=== PATIENT | female | born 1965 ===

== ENCOUNTER 2018-11-26 05:15 | Day surgery (SDC) | payer OTHER ==
[~2018-11-26] VITALS: Ht 162.6 cm; Wt 88.9 kg
[2018-11-26] VITALS (11 sets, daily range): BP systolic 150–178; BP diastolic 75–91
[2018-11-26] MEDS ORDERED: LISINOPRIL40 MG ORAL (05:50)
[2018-11-26] MEDS ORDERED: LEVOXYL150 MCG ORAL (05:50)
[2018-11-26] MEDS ORDERED: NAPROXEN250 MG ORAL (05:50)
[2018-11-26] MEDS ORDERED: METFORMIN HCL500 M1 ORAL (05:50)
[2018-11-26] MEDS ORDERED: TRAMADOL HCL50 MG ORAL (05:50)
[2018-11-26] MEDS ORDERED: Acetaminophen (Non formulary) 100 ML IV ONE ×2 (06:00→07:00)
[2018-11-26] MEDS ORDERED: celeBREX 200mg Cap **SURGERY PATIENTS ONLY ORAL ONE (06:00)
[2018-11-26] MEDS ORDERED: ceFAZolin 1gm IVPB IVPB ONE ×2 (06:00)
[2018-11-26] MEDS ORDERED: oxyCONTIN 20mg tab ORAL ONE (06:00)
[2018-11-26] MEDS ORDERED: Alfentanil 2ml Inj ONE (06:35)
[2018-11-26] MEDS ORDERED: Midazolam 2mg/2ml Inj ONE (06:35)
[2018-11-26] MEDS ORDERED: LR 1000ml 1,000 ML IVLG SCH (06:37)
--- NOTE | 2018-11-26 06:41 | Anethesia Preoperative Eval ---
Anesthesia Pre-op PMH/ROS General Date of Evaluation: Nov 26, 2018 Time of Evaluation: 06:51 Anesthesiologist: Elio ASA Score: ASA 3 Mallampati Score Class I : Soft palate, uvula, fauces, pillars visible Class II: Soft palate, uvula, fauces visible Class III: Soft palate, base of uvula visible Class IV: Only hard plate visible Mallampati Classification: Class II Surgeon: Rula Diagnosis: L Hand Tenosynovitis Surgical Procedure: L Hand CTR, De Quervain Release Anesthesia History: none Family History: no anesthesia problems Allergies: Coded Allergies: No Known Allergies (Unverified , 11/25/18) Medications: see eMAR Patient NPO?: Yes Past Medical History Cardiovascular: Reports: HTN Endocrine: Reports: DM Other: obesity - BMI 35 PSxH Narrative: Cholecystectomy Anesthesia Pre-op Phys. Exam Physician Exam Last Vital Signs Date Time Temp Pulse Resp B/P (MAP) Pulse Ox O2 Delivery O2 Flow Rate FiO2 11/26/18 05:58 Room Air 11/26/18 05:51 97.7 53 18 158/75 97 Constitutional: NAD Neurologic: CN 2-12 intact Cardiovascular: RRR Respiratory: CTA Gastrointestinal: S/NT/ND Airway Exam Mallampati Score: Class II MO: limited ROM: limited Teeth: missing, intact Anesthesia Pre-op A/P Labs Urine Test Test 11/26/18 05:25 Urine HCG, Qualitative Negative (NEGATIVE) Risk Assessment & Plan Assessment: ASA 3 Plan: GA, SED Status Change Before Surgery: No Pre-Antibiotics Dru gram Ancef IV Given Within 1 Hr of Incision: Yes Time Given: 07:06 Lux Ballard MD Nov 26, 2018 06:41
[2018-11-26] MEDS ORDERED: Bupivacaine 0.5% Inj 30 ml vial INJ ONE (06:44)
[2018-11-26] MEDS ORDERED: Bupivacaine w/Epi 0.5% 30ml Vial INJ ONE (06:44)
[2018-11-26] MEDS ORDERED: Lidocaine 1% 10mg/ml/Epi 0.005mg/ml 30ml vial INJ ONE (06:44)
--- NOTE | 2018-11-26 06:44 | 48 Hour Post Anesthesia Eval ---
Post Anesthesia Evaluation Procedure: L Hand CTR, De Quervain Release Date of Evaluation: Nov 26, 2018 Time of Evaluation: 10:23 Blood Pressure Systolic: 162 0: 78 Pulse Rate: 56 Respiratory Rate: 18 Temperature (Fahrenheit): 97 O2 Sat by Pulse Oximetry: 98 Airway: patent Nausea: No Vomiting: No Pain Intensity: 1 Hydration Status: adequate Cardiopulmonary Status: Stable Mental Status/LOC: patient returned to baseline Follow-up Care/Observations: 0 Post-Anesthesia Complications: 0 Follow-up care needed: ready to discharge Lux Ballard MD Nov 26, 2018 06:44
--- NOTE | 2018-11-26 06:44 | Immediate Post-Op Evaluation ---
Immediate Post-Op Evalulation Immediate Post-Op Evalulation Procedure: L Hand CTR, De Quervain Release Date of Evaluation: Nov 26, 2018 Time of Evaluation: 08:15 IV Fluids: 400 LR Blood Products: 0 Estimated Blood Loss: 8 Urinary Output: 0 Blood Pressure Systolic: 150 Blood Pressure Diastolic: 82 Pulse Rate: 74 Respiratory Rate: 16 O2 Sat by Pulse Oximetry: 93 Temperature (Fahrenheit): 97 Pain Score (1-10): 2 Nausea: No Vomiting: No Complications 0 Patient Status: awake, reacts, patent, none Hydration Status: adequate Dru Gram Ancef IV Given Within 1 Hr of Incision: Yes Time Given: 07:06 Lux Ballard MD Nov 26, 2018 06:44
[2018-11-26] MEDS ORDERED: Meperidine 50mg/ml Inj(FOR RIGORS ONLY) IVP PRN (06:45)
[2018-11-26] MEDS ORDERED: Atropine Sulfate 0.4mg/ml inj IVP PRN (06:45)
[2018-11-26] MEDS ORDERED: LORazepam Inj 2mg/ml 1ml IV PRN (06:45)
[2018-11-26] MEDS ORDERED: HYDROcodone/Acetamin 5/325 tab ORAL PRN ×2 (06:45→07:00)
[2018-11-26] MEDS ORDERED: DiphenhydrAMINE 50mg/ml Inj IVP PRN (06:45)
[2018-11-26] MEDS ORDERED: Labetalol 5mg/ml 20ml vial IV PRN (06:45)
[2018-11-26] MEDS ORDERED: Midazolam 2mg/2ml Inj IVP PRN (06:45)
[2018-11-26] MEDS ORDERED: Ketorolac 30mg Inj IV PRN ×2 (06:45)
[2018-11-26] MEDS ORDERED: fentaNYL 100 mcg/2 mL IV PRN (06:45)
[2018-11-26] MEDS ORDERED: Metoclopramide 10mg/2ml Inj IVP PRN (06:45)
[2018-11-26] MEDS ORDERED: HYDROcodone/Acetamin 7.5/325 tab ORAL PRN (06:45)
[2018-11-26] MEDS ORDERED: Hydromorphone 0.5mg/0.5ml inj IVP PRN (06:45)
[2018-11-26] MEDS ORDERED: oxyCODONE HCL/Acetaminophen 5/325mg ORAL PRN (06:45)
[2018-11-26] MEDS ORDERED: Lidocaine 1% Plain 30 ml INJ ONE (06:45)
[2018-11-26] MEDS ORDERED: Lidocaine 1% MPF 10mg/ml 5ml ONE (06:53)
[2018-11-26] MEDS ORDERED: Sodium Chloride 10ml vial INJ ONE (06:53)
--- NOTE | 2018-11-26 06:54 | Pre-Procedure Note/Attestation ---
Pre-Procedure Note/Attestation Complete Prior to Procedure Planned Procedure: left Procedure Narrative: left dequervain release, CTR Indications for Procedure Pre-Operative Diagnosis: left dequervain tenosynovitis, CTS Attestation I attest that I discussed the nature of the procedure; its benefits; risks and complications; and alternatives (and the risks and benefits of such alternatives ), prior to the procedure, with the patient (or the patient's legal billing customer service representative). I attest that, if there was a reasonable possibility of needing a blood transfusion, the patient (or the patient's legal billing customer service representative) was given the [facility] standardized written summary, pursuant to the Brad Megha Blood Safety Act ([place] Health and Safety Code # 1645, as amended). I attest that I re-evaluated the patient just prior to the surgery and that there has been no change in the patient's H&P, except as documented below: NONE Reuben Horta MD Nov 26, 2018 06:54
[2018-11-26] MEDS ORDERED: Tylenol #3 tab (300mg/30mg) ORAL PRN (07:00)
[2018-11-26] MEDS ORDERED: LR 1000ml ONE (07:00)
[2018-11-26] MEDS ORDERED: NS Irrig 1000ml ONE (07:00)
[2018-11-26] MEDS ORDERED: Sterile Water Irrig 1000ml IRRIG ONE (07:00)
[2018-11-26] MEDS ORDERED: Propofol 200mg/20ml IV ONE (07:00)
[2018-11-26] MEDS ORDERED: HYDROmorphone 1mg/ml Carpuject SUBQ PRN (07:00)
--- NOTE | 2018-11-26 07:50 | Brief Operative Note ---
Immediate Post Operative Note Operative Note Chief Complaint: left wrist pain Pre-op Diagnosis: left dequervain tenosynovitis, CTS Procedure: left CTR, dequervain release Post-op Diagnosis: same as pre-op Findings: consistent w/pre-op dx studies Surgeon: md lili Bingo Caller: caroline vizcarra Anesthesiologist: md kavya Anesthesia: general Specimen: none Complications: none Condition: stable Fluids: ns Estimated Blood Loss: minimal Drains: none Implant(s) used?: Reuben Acosta MD Nov 26, 2018 07:50
--- NOTE | 2018-11-26 09:00 | Operative Note - Dictated ---
DATE OF OPERATION: 11/26/2018 PREOPERATIVE DIAGNOSES: 1. Left hand carpal tunnel syndrome. 2. Left hand de Quervain tenosynovitis. POSTOPERATIVE DIAGNOSES: 1. Left hand carpal tunnel syndrome. 2. Left hand de Quervain tenosynovitis. PROCEDURE: 1. Left hand carpal tunnel release. 2. Left wrist de Quervain release with tenosynovectomy. SURGEON: Reuben Horta M.D. MANAGER PAYMENT: Apryl Trejo PA-C. ANESTHESIOLOGIST: Lux Ballard M.D. ANESTHESIA: General LMA anesthesia. ESTIMATED BLOOD LOSS: Less than 20 mL. COMPLICATIONS: None. TOURNIQUET TIME: 20 minutes. BRIEF HISTORY: The patient is a pleasant 53-year-old female, who has had ongoing left hand carpal tunnel and de Quervain symptoms. She was treated conservatively and failed nonoperative treatment. After full discussion of risks and benefits of surgery and complications associated with it including infection, bleeding, neurovascular complication, possibility of continued pain, possible superficial sensory loss, as well as neuroma specifically over the palmar aspect of the hand as well as over the radial styloid, she opted for surgical treatment as described above. OPERATIVE PROCEDURE: The patient was brought to the operating room and was placed supine. All pressure points well padded. General LMA anesthesia was induced and the left hand was prepped and draped in usual sterile fashion. The left hand was exsanguinated and the tourniquet was inflated to 275 mmHg. The hand was placed on the and an incision was made in line with the radial border of the ring finger distal to the wrist crease extending by about 2.5 cm. The incision was taken through subcutaneous tissue. The palmaris fascia was opened. The transverse carpal ligament was identified. The transverse carpal ligament was then divided all the way distally to the fatty area surrounding the palmar arch. Care was given to protect the palmar arch. Proximally, the dissection was taken all the way to the proximal edge of the wound and then subcutaneous dissection was performed over and under the transverse carpal ligament and the transverse carpal ligament was then released subcutaneously all the way to the proximal wrist crease. Once this was done, the carpal tunnel was completely opened and the nerve appeared to be free. Care was given to de Quervain area. A separate and distinct incision was made over the radial styloid horizontally. The incision was left very superficial in order not to damage the superficial radial nerve branches. Using Littler scissors, the subcutaneous tissue was then dissected and Ragnell retractors were placed in and first dorsal compartment was identified. At this point, the first dorsal compartment was released using a knife proximally and all the way distally. The extensor pollicis brevis and abductor pollicis longus were then identified and were brought out of the first dorsal compartment and they were irrigated. There was no damage to the tendons. At this point, all wounds were thoroughly irrigated using copious amount of fluid. The tourniquet was deflated. There was minimal bleeding. The wound was closed using 4-0 horizontal mattress interrupted nylon suture. Sterile dressing was applied and the patient tolerated procedure well without any complication, was taken recovery room in stable condition. All lap counts and instrument counts were correct. Reuben Horta M.D. DR: CHIQUIS JOB#: [id number] CC:
[2018-11-26] MEDS ORDERED: Ketorolac 30mg Inj ONE (09:12)
[2018-11-26] MEDS ORDERED: D5 1/2NS 1,000 ML IV SCH (14:00)
== END 2018-11-26 11:30 | disposition home or self-care (01) ==
LOC: SUR 05:15
DX: G56.02 Carpal tunnel syndrome, left upper limb (principal); M65.4 Radial styloid tenosynovitis [de Quervain]; Z90.49 Acquired absence of other specified parts of digestive tract; Z79.899 Other long term (current) drug therapy; Z79.84 Long term (current) use of oral hypoglycemic drugs; E11.9 Type 2 diabetes mellitus without complications; I10 Essential (primary) hypertension; E66.9 Obesity, unspecified; Z68.33 Body mass index [BMI] 33.0-33.9, adult
CPT/HCPCS: 25000; 64721; 81025; 82962; J0690; J1885; J2250; J2405; J2704; J3490; 94003; 94150